=== PATIENT | male | born 1965 | race Caucasian/White ===

== ENCOUNTER → 2017-09-10 | Outpatient (CLI) | payer OTHER ==
[~2017-09-10] MED LIST: CHOL100027 PO; CLC6 PO; OMEG-112 PO; OMEP20TA31 PO; RXC5 PO; SULF800T23 PO; TADA20TA PO; TYLOTC500 PO
--- NOTE | 2017-09-10 15:06 | DIAGNOSTIC IMAGING REPORT ---
CHEST 2 VIEWS ROUTINE CLINICAL HISTORY: 51 years-old Male presenting with R06.09 Dyspnea on [id number]. TECHNIQUE: PA and lateral views of the chest were obtained. COMPARISON: 10/12/2012. FINDINGS: Cardiomediastinal silhouette normal. Lungs and pleural spaces clear. Osseous structures normal. Upper abdomen normal. IMPRESSION: 1. No acute cardiopulmonary disease. Electronically signed by: Richy Allen M.D. 09/10/2017 3:05 PM Dictated Date/Time: 09/10/2017 3:04 PM
== END | disposition home or self-care (01) ==
LOC: C.RAD1850 14:58
PROVIDERS: ATTEND Internal Medicine
DX: R06.09 Other forms of dyspnea (principal)

== ENCOUNTER → 2017-09-23 | Outpatient (CLI) | payer OTHER ==
--- NOTE | 2017-09-23 14:24 | DIAGNOSTIC IMAGING REPORT ---
R FOOT MIN 3 VIEWS ROUTINE HISTORY: 51 years-old Male M79.673 Heel painHeel pain acute right heel pain without reported trauma COMPARISON: None available TECHNIQUE: 3 views of the right foot FINDINGS: Mild degenerative changes of the first MTP joint with moderate associated soft tissue swelling. No acute fracture or subluxation is identified. Marginal spurring is noted about the dorsal talonavicular joint. Moderate sized plantar and Achilles enthesophytes. Peripheral vascular disease. IMPRESSION: 1. Moderate sized plantar and Achilles enthesophytes without evidence of calcaneal fracture. 2. Moderate soft tissue swelling about the first MTP joint with mild degenerative changes. 3. Peripheral vascular disease. The above report was generated using voice recognition software. It may contain grammatical, syntax or spelling errors. Electronically signed by: Leo Hooker M.D. 09/23/2017 2:23 PM Dictated Date/Time: 09/23/2017 2:21 PM
== END | disposition home or self-care (01) ==
LOC: C.RAD1850 13:54
PROVIDERS: ATTEND Internal Medicine Rheumatology
DX: M79.673 Pain in unspecified foot (principal); M77.31 Calcaneal spur, right foot; M76.61 Achilles tendinitis, right leg; M79.9 Soft tissue disorder, unspecified; I73.9 Peripheral vascular disease, unspecified

== ENCOUNTER → 2017-12-02 | Day surgery (SDC) | payer OTHER ==
[2017-11-26 14:48] VITALS: Ht 181.6 cm; Wt 129.6 kg
[~2017-12-02] VITALS: Ht 181.6 cm; Wt 129.6 kg
[~2017-12-02] MED LIST changes: +CALC-51 PO; -CHOL100027 PO; +CHOL20005 PO; -CLC6 PO; +CLIN1GEL TOP; +CYAN100020 PO; +FEBU40TA PO; +LIDOCAINE HCL 2% 2 ML VIAL (20MG/ML) ONE; +MELA1TAB5 PO; +METH1TAB81 PO; +MISCCAP80 PO; +MULT-506 PO; +PROPOFOL IV EMULSION 10 MG/ML 20 ML VIAL ONE; -RXC5 PO; +SODIUM CHLORIDE 0.9% 500ML 500 ML IV ONE; -SULF800T23 PO; -TADA20TA PO; -TYLOTC500 PO; +[UNRECOGNIZED DRUG - OTHER] PO
--- NOTE | 2017-12-02 11:55 | Endo History and Physical ---
History & Physical Date of Service: December 02, 2017. Chief Complaint: Hx polyps Referring Physician: Dr Prado History of Present Illness 51 yo CM who presents for colonoscopy secondary to history of colon polyps. Past Medical History Diabetes, Asthma, Gastrointestinal Disorder, Sleep Apnea, Other Past Surgical History Hx Cardiac Surgery: No Hx Internal Defibrillator: No Hx Pacemaker: No Hx Abdominal Surgery: No Hx of Implantable Prosthesis: No Hx Post-Op Nausea and Vomiting: No Hx Cancer Surgery: No Hx Thoracic Surgery: No Hx Orthopedic: No Hx Urinary Tract Surgery: No Family History Polyp Social History Smoking Status: Never Smoker Hx Substance Use: No Hx Alcohol Use: Yes (1-2 BEERS/CIDER A DAY) Allergies Coded Allergies: Penicillins (Verified Allergy, Mild, GI SYMPTOMS, 11/26/17) Current Medications Reported Home Medications Medications Dose Route/Sig Max Daily Dose Days Date Category Probiotic (Probiotic Product) 1 Cap Cap 1 Cap PO DAILY 11/26/17 Reported [Purge] 1 Tab PO DAILY PRN 11/26/17 Reported Cleocin-T (Clindamycin Phosphate (Topical) 1 % Gel 1 Appln TOP DIRECTED 30 11/26/17 Reported Uloric (Febuxostat) 40 Mg Tab 1 Tab PO DAILY 90 11/26/17 Reported Vitamin B12 (Cyanocobalamin) 1,000 Mcg Tab 1 Tab PO DAILY 11/26/17 Reported Kp Melatonin (Melatonin) 3 Mg Tab 1 Tab PO HS 30 11/26/17 Reported Multivitamin (Multivitamins) Tab 2 Tab PO DAILY 11/26/17 Reported Medrol (Methylprednisolone) 4 Mg Tab 4 Mg PO DAILY 11/26/17 Reported Calcium (Calcium Carbonate-Vitamin D) 1 Tab Tab 1 Tab PO DAILY 11/26/17 Reported Vitamin D3 (Cholecalciferol) 2,000 Unit Tab 3 Tab PO DAILY 11/26/17 Reported [place]-3 (Urjos-2-Hvpy Ethyl Esters) 1 Cap Cap 1 Cap PO DAILY 09/06/15 Reported Eq Omeprazole (Omeprazole) 20 Mg Tab 20 Mg PO DAILY 09/06/15 Reported Vital Signs Weight (Kilograms): 129.55 Height (Feet): 5 Height (Inches): 11.5 Date Time Temp Pulse Resp B/P (MAP) Pulse Ox O2 Delivery O2 Flow Rate FiO2 12/02/17 11:49 36.8 74 20 145/92 (109) 97 Room Air Physical Exam General Appearance: WD/WN, no apparent distress Respiratory/Chest: Auscultation: breath sounds normal Cardiovascular: Heart Auscultation: RRR Abdomen: Bowel Sounds: normal Inspection & Palpation: soft, non-distended, no tenderness, guarding & rebound Assessment and Plan Assessment: 51 yo CM who presents for colonoscopy secondary to history of colon polyps. Plan: Proceed with colonoscopy
--- NOTE | 2017-12-02 12:36 | Discharge Instructions ---
Endoscopy Patient Instructions Date / Procedure(s) Performed December 02, 2017. Colonoscopy Allergy Information Coded Allergies: Penicillins (Verified Allergy, Mild, GI SYMPTOMS, 11/26/17) Discharge Date / Findings December 02, 2017. Colon polyps Diverticulosis Internal hemorrhoids Medication Instructions OK to resume all medications today as prescribed Reported Home Medications Medications Dose Route/Sig Max Daily Dose Days Date Category Probiotic (Probiotic Product) 1 Cap Cap 1 Cap PO DAILY 11/26/17 Reported [Purge] 1 Tab PO DAILY PRN 11/26/17 Reported Cleocin-T (Clindamycin Phosphate (Topical) 1 % Gel 1 Appln TOP DIRECTED 30 11/26/17 Reported Uloric (Febuxostat) 40 Mg Tab 1 Tab PO DAILY 90 11/26/17 Reported Vitamin B12 (Cyanocobalamin) 1,000 Mcg Tab 1 Tab PO DAILY 11/26/17 Reported Kp Melatonin (Melatonin) 3 Mg Tab 1 Tab PO HS 30 11/26/17 Reported Multivitamin (Multivitamins) Tab 2 Tab PO DAILY 11/26/17 Reported Medrol (Methylprednisolone) 4 Mg Tab 4 Mg PO DAILY 11/26/17 Reported Calcium (Calcium Carbonate-Vitamin D) 1 Tab Tab 1 Tab PO DAILY 11/26/17 Reported Vitamin D3 (Cholecalciferol) 2,000 Unit Tab 3 Tab PO DAILY 11/26/17 Reported [place]-3 (Yxtbp-9-Msgf Ethyl Esters) 1 Cap Cap 1 Cap PO DAILY 09/06/15 Reported Eq Omeprazole (Omeprazole) 20 Mg Tab 20 Mg PO DAILY 09/06/15 Reported Provider Instructions Activity Restrictions - No exercising or heavy lifting for 24 hours. - Do not drink alcohol the day of the procedure. - Do not drive a car or operate machinery until the day after the procedure. - Do not make any important decisions or sign important papers in 24 hours after the procedure. Following Day: - Return to full activity which may include returning to work/school. Diet Start your diet with liquids and light foods (jello, soup, juice, toast). Then eat your usual diet if not nauseated. Treatment For Common After Affects For mild abdominal pain, bloating, or excessive gas: - Rest - Eat lightly - Lie on right side Follow-Up Information Follow-up with Dr Prado as scheduled Anesthesia Information What You Should Know You have had a procedure that required some medicine to reduce anxiety and discomfort. This treatment is called moderate sedation. After receiving the treatment, you may be sleepy, but you will be able to breathe on your own. The effects of the treatment may last for several hours. Follow these instructions along with Activity/Diet recommendations noted above: * Do NOT do anything where dizziness or clumsiness would be dangerous. * Rest quietly at home today, then you can be up and about tomorrow. * Have a responsible person stay with you the rest of today. * You may have had an I.V. today. If so, you may take the dressing off later today. Recommendations Call your doctor if: * Trouble breathing * Continuous vomiting for more than 24 hours * Temperature above 101 degrees * Severe abdominal pain or bloating * Pain not relieved by pain medicine ordered * There is increased drainage or redness from any incision * A large amount of rectal bleeding greater than 2-3 tablespoons. (If you had a polyp/s removed or have hemorrhoids, a small amount of blood - from the rectum is to be expected.) * You have any unanswered questions or concerns. IN THE EVENT OF A SERIOUS EMERGENCY, GO TO THE NEAREST EMERGENCY ROOM Your discharge instructions were prepared by provider Migel Yeung. Patient Instructions Signature Page Dominic Blevins Patient (or Guardian) Signature/Date: I have read and understand the instructions given to me by my caregivers. Caregiver/RN/Doctor Signature/Date: The above-named patient and/or guardian has received patient instructions on this date. + Original Patient Signature Page (only) stays with chart. Please make copy for patient.
--- NOTE | 2017-12-02 12:51 | GI REPORT ---
Patient Name: Dominic Blevins Procedure Date: 12/02/2017 11:25 AM Date of : 1965 Admit Type: Outpatient Age: 51 Gender: Male Attending MD: Migel Yeung DO Procedure: Colonoscopy Providers: Migel Yeung DO Referring MD: Ksenia Prado Indications: High risk colon cancer surveillance: Personal history of colonic polyps Medicines: Monitored Anesthesia Care Complications: No immediate complications. Estimated Blood Loss: Estimated blood loss: none. Procedure: Pre-Anesthesia Assessment: - Prior to the procedure, a History and Physical was performed, and patient medications and allergies were reviewed. The patient's tolerance of previous anesthesia was also reviewed. The risks and benefits of the procedure and the sedation options and risks were discussed with the patient. All questions were answered, and informed consent was obtained. Prior Anticoagulants: The patient has taken no previous anticoagulant or antiplatelet agents. ASA Grade Assessment: III - A patient with severe systemic disease. After reviewing the risks and benefits, the patient was deemed in satisfactory condition to undergo the procedure. After I obtained informed consent, the scope was passed under direct vision. Throughout the procedure, the patient's blood pressure, pulse, and oxygen saturations were monitored continuously. The Scope was introduced through the anus and advanced to the terminal ileum. The colonoscopy was performed without difficulty. The patient tolerated the procedure well. The quality of the bowel preparation was good. The terminal ileum, ileocecal valve, appendiceal orifice, and rectum were photographed. Findings: The perianal and digital rectal examinations were normal. A 13 mm polyp was found in the ascending colon. The polyp was flat. The polyp was removed with a piecemeal technique using a hot snare. Resection and retrieval were complete. To prevent bleeding after the polypectomy, one hemostatic clip was successfully placed (MR conditional). There was no bleeding at the end of the procedure. A 4 mm polyp was found in the rectum. The polyp was sessile. The polyp was removed with a hot snare. Resection and retrieval were complete. Multiple small-mouthed diverticula were found in the sigmoid colon. Non-bleeding internal hemorrhoids were found during retroflexion. The hemorrhoids were small. Impression: - One 13 mm polyp in the ascending colon, removed piecemeal using a hot snare. Resected and retrieved. Clip (MR conditional) was placed. - One 4 mm polyp in the rectum, removed with a hot snare. Resected and retrieved. - Diverticulosis in the sigmoid colon. - Non-bleeding internal hemorrhoids. Recommendation: - Resume previous diet. - Continue present medications. - Repeat colonoscopy for surveillance based on pathology results. - Return to primary care physician as previously scheduled. Migel Yeung, DO 12/02/2017 12:50:36 PM This report has been signed electronically. Note Initiated On: 12/02/2017 11:25 AM Number of Addenda: 0 I attest to the content of the Intraoperative Record and orders documented therein, exceptions below {[id number]}
[2017-12-02 13:07] VITALS: BP 133/87; PULSE 69; O2SAT 94
--- NOTE | 2017-12-02 13:17 | Anesthesiology Progress Note ---
Anesthesia Post Op Note Date & Time December 02, 2017 at 13:16 Vital Signs Pain Intensity: 0 Vital Signs Past 12 Hours Date Time Temp Pulse Resp B/P (MAP) Pulse Ox O2 Delivery O2 Flow Rate FiO2 12/02/17 12:51 67 20 152/90 (110) 93 Room Air 12/02/17 12:35 74 20 143/84 (103) 96 Room Air 12/02/17 11:49 36.8 74 20 145/92 (109) 97 Room Air Notes Mental Status: alert / awake / arousable, participated in evaluation Pt Amnestic to Procedure: Yes Nausea / Vomiting: adequately controlled Pain: adequately controlled Airway Patency, RR, SpO2: stable & adequate BP & HR: stable & adequate Hydration State: stable & adequate Anesthetic Complications: no major complications apparent
== END | disposition home or self-care (01) ==
LOC: C.GI 10:34
PROVIDERS: ATTEND Internal Medicine
DX: Z12.11 Encounter for screening for malignant neoplasm of colon (principal); D12.2 Benign neoplasm of ascending colon; K62.1 Rectal polyp; K57.30 Diverticulosis of large intestine without perforation or abscess without bleeding; K64.8 Other hemorrhoids; Z86.010 Personal history of colon polyps; E11.9 Type 2 diabetes mellitus without complications; J45.909 Unspecified asthma, uncomplicated; G47.33 Obstructive sleep apnea (adult) (pediatric); Z88.0 Allergy status to penicillin; F41.9 Anxiety disorder, unspecified; F32.9 Major depressive disorder, single episode, unspecified

== ENCOUNTER 2022-12-30 14:23 | Inpatient (IN) ==
[2022-12-30 14:41] LABS: Basophils # (auto) 0.06 K/uL (0-0.2); Basophils % (auto) 0.6 %; Eosinophils # (auto) 0.16 K/uL (0-0.50); Eosinophils % (auto) 1.6 %; Hemoglobin 14.5 g/dl (14.0-18.0); Immature Granulocytes # (auto) 0.07 K/uL (0.01-0.20); Immature Granulocytes % (auto) 0.7 %; Lymphocytes # (auto) 2.02 K/uL (1.2-3.4); Lymphocytes % (auto) 20.6 %; Mean Corpuscular Hemoglobin 28.8 pg (25.0-34.0); Mean Corpuscular Hgb Conc 34.5 g/dL (32.0-36.0); Mean Corpuscular Volume 83.5 fL (80.0-100.0); Mean Platelet Volume 10.8 fL (9.4-12.4); Monocytes # (auto) 0.76 K/uL (0.11-0.59); Monocytes % (auto) 7.8 %; Neutrophils # (auto) 6.73 K/uL (1.40-6.50); Neutrophils % (auto) 68.7 %; Platelet Count 252 K/uL (130-400); RDW Coefficient of Variation 12.7 % (11.5-14.5); RDW Standard Deviation 38.5 fL (36.4-46.3); Red Blood Count 5.03 M/uL (4.70-6.10)
--- NOTE | 2022-12-30 14:44 | Emergency Department Note ---
History of Present Illness General Chief complaint: Heart Alert Stated complaint: HEART ALERT Time Seen by Provider: 12/30/22 14:26 Source: patient, EMS ([facility] medical command was given prehospital), RN notes reviewed and old records reviewed (I have reviewed the cath report that was done on 12-19-22) Mode of arrival: EMS Limitations: no limitations History of Present Illness Maximum Pain Intensity: 3 This patient is a 57-year-old male who comes in after having chest pain which started on 130 has a history of multivessel coronary disease and in fact was cathed recently on 12/19/2022. It showed complex multivessel disease. He was awaiting his CABG and was doing well until about 130 today developed chest pain he took 2 nitroglycerin at home EMS called me. I did order additional morphine 2 mg IV and told him they could also give him additional nitro sublingual as he was tolerated this well with his pressure it was 140 in the field. They had given him aspirin 325 mg as well. Upon arrival the patient has 3 out of 10 discomfort. He does feel mildly short of breath only. No trauma or injury. No numbness or weakness. Home Medications Medication Instructions Recorded Confirmed Type calcium carbonate 600 mg calcium 600 mg PO QAM 11/05/18 12/19/22 History (1,500 mg) tablet (Calcium) cholecalciferol (vitamin D3) 50 3 cap PO HS 11/05/18 12/19/22 History mcg (2,000 unit) capsule (Vitamin D3) clindamycin phosphate 1 % topical 1 applic topical BID PRN Rash 11/05/18 12/19/22 History solution cyanocobalamin (vitamin B-12) 5,000 mcg sublingual HS 11/05/18 12/19/22 History 5,000 mcg sublingual tablet (Vitamin B-12) febuxostat 80 mg tablet (Uloric) 80 mg PO QAM 11/05/18 12/19/22 History multivitamin 1 tab PO QAM 11/05/18 12/19/22 History antiarthritic combination no.2 900 2,700 mg PO QAM 03/10/19 12/19/22 History mg tablet (glucosamine-chondroitin) omega-3 acid ethyl esters 1 gram 1 cap PO HS #90 caps 03/12/19 12/19/22 Rx capsule alclometasone 0.05 % topical cream 1 applic topical DAILY PRN Rash 06/12/20 12/19/22 Rx #45 grams ferrous sulfate 325 mg (65 mg 650 mg PO DAILY 01/22/21 12/19/22 History iron) tablet (Mona-Time) Auto Titrating CPAP #1 ea 10/25/21 12/19/22 Rx CPAP Supplies #1 ea 10/25/21 12/19/22 Rx ascorbic acid (vitamin C) 500 mg 500 mg PO 1XD 06/12/22 12/19/22 History capsule quercetin 500 mg capsule 500 mg PO 1XD 06/12/22 12/19/22 History zinc gluconate 50 mg tablet 50 mg PO DAILY 06/12/22 12/17/22 History furosemide 40 mg tablet (Lasix) 40 mg PO QAM #30 tabs 11/08/22 12/19/22 Rx albuterol sulfate 90 mcg/actuation 2 inh inhalation QID PRN shortness 11/11/22 12/19/22 Rx aerosol inhaler of breath or wheezing #8.5 grams colchicine 0.6 mg tablet (Colcrys) 0.6 mg PO BID PRN Abdominal Pain 11/13/22 12/19/22 History omeprazole 20 mg tablet,delayed 20 mg PO HS #90 tabs 11/20/22 12/19/22 Rx release tirzepatide 2.5 mg/0.5 mL 2.5 mg (0.5 mL) subcut .ONCE 11/20/22 12/17/22 Rx subcutaneous pen injector WEEKLY #2 mL (Jaime) aspirin 81 mg tablet,delayed 81 mg PO DAILY #90 tabs 12/11/22 12/19/22 Rx release atorvastatin 40 mg tablet 40 mg PO HS #30 tabs 12/19/22 Rx metoprolol succinate 25 mg 25 mg PO DAILY #30 tabs 12/19/22 Rx tablet,extended release 24 hr (Toprol XL) nitroglycerin 0.4 mg sublingual 0.4 mg sublingual Q5M PRN chest 12/19/22 Rx tablet pain #30 tabs isosorbide mononitrate 30 mg 30 mg PO DAILY #30 tabs 12/21/22 Rx tablet,extended release 24 hr Allergies Allergy/AdvReac Type Severity Reaction Status Date / Time gluten Allergy Severe Celiac Verified 12/19/22 07:37 Disease wheat Allergy Severe celiac Verified 12/19/22 07:37 disease Penicillins Allergy Mild nausea/vomi Verified 12/19/22 07:37 ting Past Med/Surg History Medical History Anemia iron infusion 11/2019 Asthma childhood asthma--no inhaler BPH (benign prostatic hyperplasia) Cardiac murmur Moderate aortic sclerosis with no stenosis on 2018 stress echo Celiac disease diagnosed 2008--following a gluten free diet since 2018 Chest tightness Diastolic CHF Dyspnea on exertion GERD (gastroesophageal reflux disease) Gout Incomplete bladder emptying Iron deficiency anemia Microcytic anemia Morbid obesity due to excess calories Morbid obesity due to excess calories MAREN (obstructive sleep apnea) Osteoarthritis Prediabetes Scoliosis Shortness of breath Sleep apnea cpap Surgical History History of biopsy benign in mouth History of colonoscopy with polypectomy History of esophagogastroduodenoscopy (EGD) History of wisdom tooth extraction Family History Father Family history of diabetes mellitus Mother Thyroid disease Grandfather No problems noted. Grandfather Cardiac disorder Grandfather (Maternal) Myocardial infarction Grandfather (Paternal) Prostate cancer Other No family history of adverse response to anesthesia Denies family history of Colon cancer Ovarian cancer Breast cancer Social History Smoking Status: Never smoker Second Hand Exposure: No; Do You Dip or Chew Tobacco: No; Hx Alcohol Use: Yes Alcohol type: beer Hx Substance Use: No Preferred Language: Nauruan Communication Ability: Effective Visual Impairment: No Limitations Hearing Ability: Normal Vice President Biostatistics Required: No Beliefs That Will Affect Care: None marital status: Current Living Situation: Spouse current occupational status: employed Feels Safe at Home: Yes Childhood Exposure to Second-Hand Smoke: No Dental Care, Regularly: Yes Physical Activity Frequency: Does not Exercise Seatbelt Use: always Sunscreen Use: No Assistive Devices: None Review of Systems A total of 10 systems reviewed and were otherwise negative Physical Exam Vital Signs Vital Signs - 24 hr 12/30/22 14:30 12/30/22 14:31 12/30/22 14:36 Temperature 36.3 C L Temperature Source Oral Pulse Rate 93 H 93 H Respiratory Rate 20 Blood Pressure 170/100 H Blood Pressure Mean 123 Pulse Oximetry 96 96 Oxygen Delivery Method Room Air Sepsis Recent Fever Within 48 Hours No Sepsis New/Unexplained Change in Mental Status N/A Sepsis Action Taken by Nursing No Action Required General: Well developed well nourished obese middle-age male who appears mildly uncomfortable but in no acute respiratory distress, breathing comfortably on room air. Normal speech HEENT: Normal cephalic atraumatic. Pupils are equal round and reactive to light. Extraocular movements are intact. Oropharynx is pink with moist mucous membranes. No swelling of the mouth lips or tongue. Neck: Supple with a midline trachea. No meningeal signs or stiffness, no JVD or bruits. No Stridor. Chest: Clear to auscultation bilaterally. No wheezes or rhonchi. No increased work of breathing. Heart: Regular rate and rhythm without murmurs or gallops. Abdomen: Soft nontender, nondistended without rebound guarding or rigidity. Extremities: No cyanosis clubbing or edema. No calf tenderness or assymetry Spine/Back. Non tender to palpation. No CVA tenderness Skin: Good turgor without rashes. Neurologic exam: Nonfocal, moving all 4 extremities symmetrically Medical Decision Making Differential Diagnosis Acute coronary syndrome, arrhythmia, pericarditis, myocarditis, infection, inflammation, vascular aortic pathology, CHF Medical Records Attestation: I reviewed the patient's medical records. Home Medications Current Medication List: was personally reviewed by me Laboratory Data Attestation: I reviewed the patient's lab results. 12/30/22 14:29 12/30/22 14:29 Lab Results 12/30/22 12/30/22 12/30/22 Range/Units 14:29 14:29 14:29 WBC 9.80 (4.8-10.8) K/ul RBC 5.03 (4.70-6.10) M/uL Hgb 14.5 (14.0-18.0) g/dl POC Hgb (14.0-18.0) g/dl Hct 42.0 (42.0-52.0) % POC Hct (42-52) % MCV 83.5 (80.0-100.0) fL MCH 28.8 (25.0-34.0) pg MCHC 34.5 (32.0-36.0) g/dL RDW Std Deviation 38.5 (36.4-46.3) fL RDW Coeff of Katya 12.7 (11.5-14.5) % Plt Count 252 (130-400) K/uL MPV 10.8 (9.4-12.4) fL Immature Gran % (Auto) 0.7 % Neut % (Auto) 68.7 % Lymph % (Auto) 20.6 % [place] % (Auto) 7.8 % Eos % (Auto) 1.6 % Baso % (Auto) 0.6 % Neut # (Auto) 6.73 H (1.40-6.50) K/uL Lymph # (Auto) 2.02 (1.2-3.4) K/uL [place] # (Auto) 0.76 H (0.11-0.59) K/uL Eos # (Auto) 0.16 (0-0.50) K/uL Baso # (Auto) 0.06 (0-0.2) K/uL Immature Gran # (Auto) 0.07 (0.01-0.20) K/uL PT 11.6 (9.0-12.0) Seconds INR 1.1 (0.9-1.1) APTT 29.5 (21.0-31.0) Seconds PTT Ratio 1.0 POC Sodium (135-144) mmol/L Sodium 134 L (136-145) mmol/L POC Potassium (3.3-5.0) mmol/L Potassium 3.4 L (3.5-5.1) mmol/L POC Chloride (101-112) mmol/L Chloride 102 (98-107) mmol/L Carbon Dioxide 23 (21-32) mmol/L POC Total CO2 (24-31) mmol/L Anion Gap 9 (3-11) POC Anion Gap (16-25) mmol/L POC BUN (7-18) mg/dl BUN 18 (6-23) mg/dl Creatinine 1.03 (0.6-1.4) mg/dl POC Creatinine (0.6-1.3) mg/dl Est Cr Clr Drug Dosing 109.9 ml/min Est GFR ( Amer) 91.7 ml/min Est GFR (Non-Af Amer) 79.1 ml/min BUN/Creatinine Ratio 17.5 (10-20) Glucose 119 H (70-99(Fasting)) mg/dl POC Glucose (other) (70-99) mg/dl Calcium 9.5 (8.6-10.3) mg/dl POC Ioniz Calcium Nav (1.12-1.32) mmol/l Total Bilirubin 0.6 (0.2-1.0) mg/dl AST 29 (13-39) U/L ALT 48 (7-52) U/L Alkaline Phosphatase 73 (34-104) U/L Troponin I High Sens 5.4 (0-20) pg/ml Total Protein 7.5 (6.0-8.3) gm/dl Albumin 4.8 (3.4-5.0) gm/dl Globulin 2.7 (2.5-4.0) gm/dl Albumin/Globulin Ratio 1.8 (0.9-2) Lipase 32 (11-82) U/L SARS-CoV-2, RNA, NAAT (NEGATIVE) 12/30/22 12/30/22 Range/Units 14:32 14:33 WBC (4.8-10.8) K/ul RBC (4.70-6.10) M/uL Hgb (14.0-18.0) g/dl POC Hgb 13.9 L (14.0-18.0) g/dl Hct (42.0-52.0) % POC Hct 41 L (42-52) % MCV (80.0-100.0) fL MCH (25.0-34.0) pg MCHC (32.0-36.0) g/dL RDW Std Deviation (36.4-46.3) fL RDW Coeff of Katya (11.5-14.5) % Plt Count (130-400) K/uL MPV (9.4-12.4) fL Immature Gran % (Auto) % Neut % (Auto) % Lymph % (Auto) % [place] % (Auto) % Eos % (Auto) % Baso % (Auto) % Neut # (Auto) (1.40-6.50) K/uL Lymph # (Auto) (1.2-3.4) K/uL [place] # (Auto) (0.11-0.59) K/uL Eos # (Auto) (0-0.50) K/uL Baso # (Auto) (0-0.2) K/uL Immature Gran # (Auto) (0.01-0.20) K/uL PT (9.0-12.0) Seconds INR (0.9-1.1) APTT (21.0-31.0) Seconds PTT Ratio POC Sodium 137 (135-144) mmol/L Sodium (136-145) mmol/L POC Potassium 3.4 (3.3-5.0) mmol/L Potassium (3.5-5.1) mmol/L POC Chloride 102 (101-112) mmol/L Chloride (98-107) mmol/L Carbon Dioxide (21-32) mmol/L POC Total CO2 20 L (24-31) mmol/L Anion Gap (3-11) POC Anion Gap 20.0 (16-25) mmol/L POC BUN 17 (7-18) mg/dl BUN (6-23) mg/dl Creatinine (0.6-1.4) mg/dl POC Creatinine 0.9 (0.6-1.3) mg/dl Est Cr Clr Drug Dosing ml/min Est GFR ( Amer) ml/min Est GFR (Non-Af Amer) ml/min BUN/Creatinine Ratio (10-20) Glucose (70-99(Fasting)) mg/dl POC Glucose (other) 120 H (70-99) mg/dl Calcium (8.6-10.3) mg/dl POC Ioniz Calcium Nav 1.08 L (1.12-1.32) mmol/l Total Bilirubin (0.2-1.0) mg/dl AST (13-39) U/L ALT (7-52) U/L Alkaline Phosphatase (34-104) U/L Troponin I High Sens (0-20) pg/ml Total Protein (6.0-8.3) gm/dl Albumin (3.4-5.0) gm/dl Globulin (2.5-4.0) gm/dl Albumin/Globulin Ratio (0.9-2) Lipase (11-82) U/L SARS-CoV-2, RNA, NAAT NEGATIVE (NEGATIVE) ECG Data Attestation: I personally reviewed and interpreted this ECG as follows: Indication: + chest pain Rate (beats per minute): 93 Rhythm: + normal sinus ECG Intervals/blocks: + Normal QRS and + Normal QT ECG [place]: + Normal ECG ST segments: + ST depression (Lateral) and + ST elevation (Inferior) ECG Findings: no PACs or no PVCs Comparison ECG Date: from (EMS EKG) Change: the following changes noted (The ST segment and ischemic changes appear to be worsening/evolving) MDM Narrative This patient comes in as described above. They called in from [facility] medical command. Based on his EKGs in the field as well as his history his presentation is very consistent with an acute inferior PR. I called the heart alert immediately after talking to EMS. He did receive aspirin 324 mg in the field as well as nitroglycerin x2 and morphine 2 mg IV. His pain is about 3 out of 10 upon arrival which she describes more of a discomfort. He did have a cath about a week ago and is known multivessel coronary disease. The cath team arrived promptly. In the meantime, we obtained labs and a second IV. His creatinine was 0.9 on the i-STAT , he no significant electrolyte or metabolic abnormalities with exception of a mildly low potassium at 3.4. He was sent emergently to the [facility]ies [facility]. I discussed case with Dr. Gramajo. I also discussed case with Dr. Henderson, who is the [facility] hospitalist. It may be that they stent him and send him to [facility] or it may be he gets admitted here depending upon the clinical course in the [facility]. COVID testing was negative. Continuous cardiac monitoring: Orders placed in EMR for continuous cardiac monitoring: Upon my evaluation patient noted to be in normal sinus rhythm rate of 90. He has obvious ST segment elevations consistent with STEMI on the EKG Impression & Plan Acute ST elevation myocardial infarction (STEMI), Chest pain, Lab test negative for COVID-19 virus, Hypokalemia Discharge Plan Visit Data Chief Complaint: Heart Alert Stated Complaint: HEART ALERT ED Provider: Anand Ybarra Discharge Problem: Acute ST elevation myocardial infarction (STEMI), Chest pain, Lab test negative for COVID-19 virus, Hypokalemia Patient Disposition: Being Evaluated by Surgeon Discharge Instructions Interventions: ED Discharge Assessment Last Done: 12/30/22 14:37 Forms Stand Alone Forms: My [facility] Prescriptions Prescriptions: No Action alclometasone 0.05 % cream 1 applic TOPICAL DAILY PRN (Reason: Rash) Qty: 45 2RF furosemide [Lasix] 40 mg tablet 40 mg PO QAM Qty: 30 3RF nitroglycerin 0.4 mg tablet, sublingual 0.4 mg sublingual Q5M PRN (Reason: chest pain) Qty: 30 1RF Rx Instructions: do not exceed 3 doses per episode isosorbide mononitrate 30 mg tablet extended release 24 hr 30 mg PO DAILY Qty: 30 2RF glucosamine-chondroitin 900 mg tablet 2,700 mg PO QAM omega-3 acid ethyl esters 1 gram capsule 1 cap PO HS Qty: 90 1RF Mounjaro 2.5 mg/0.5 mL pen injector 2.5 mg subcut .ONCE WEEKLY Qty: 2 1RF omeprazole 20 mg tablet,delayed release (DR/EC) 20 mg PO HS Qty: 90 3RF aspirin 81 mg tablet,delayed release (DR/EC) 81 mg PO DAILY Qty: 90 3RF (DME) CPAP Supplies Misc See Rx Instructions .ROUTE .MEDSUPPLY Qty: 1 0RF Rx Instructions: CPAP supplies (DME) Auto Titrating CPAP Misc See Rx Instructions .ROUTE .MEDSUPPLY Qty: 1 0RF Rx Instructions: Min 5 cm H2O, max 20 cm H2O, C-Flex 2 ascorbic acid (vitamin C) 500 mg capsule 500 mg PO 1XD zinc gluconate 50 mg tablet 50 mg PO DAILY quercetin 500 mg capsule 500 mg PO 1XD ferrous sulfate [Mona-Time] 325 mg (65 mg iron) tablet 650 mg PO DAILY albuterol sulfate 90 mcg/actuation HFA aerosol inhaler 2 inh inhalation QID PRN (Reason: shortness of breath or wheezing) Qty: 8.5 3RF multivitamin Tablet 1 tab PO QAM calcium carbonate [Calcium 600] 600 mg calcium (1,500 mg) Tablet 600 mg PO QAM clindamycin phosphate 1 % Solution 1 applic TOPICAL BID PRN (Reason: Rash) cholecalciferol (vitamin D3) [Vitamin D3] 2,000 unit Capsule 3 cap PO HS febuxostat [Uloric] 80 mg Tablet 80 mg PO QAM cyanocobalamin (vitamin B-12) [Vitamin B-12] 5,000 mcg Tablet, Sublingual 5,000 mcg SUBLINGUAL HS colchicine [Colcrys] 0.6 mg tablet 0.6 mg PO BID PRN (Reason: Abdominal Pain) atorvastatin 40 mg tablet 40 mg PO HS Qty: 30 6RF metoprolol succinate [Toprol XL] 25 mg tablet extended release 24 hr 25 mg PO DAILY Qty: 30 6RF Referrals Referrals: Gallo Mcgraw MD [Primary Care Provider] - Acute ST elevation myocardial infarction (STEMI) Qualifiers: Involved coronary artery: unspecified coronary artery Qualified Code(s): I21.3 - ST elevation (STEMI) myocardial infarction of unspecified site Chest pain Qualifiers: Chest pain type: unspecified Qualified Code(s): R07.9 - Chest pain, unspecified
[2022-12-30 14:46] LABS: iSTAT Creatinine 0.9 mg/dl (0.6-1.3); iSTAT Hemoglobin 13.9 g/dl (14.0-18.0); iSTAT Ionized Calcium 1.08 mmol/l (1.12-1.32); iSTAT Potassium 3.4 mmol/L (3.3-5.0)
[2022-12-30 14:52] LABS: INR 1.1 (0.9-1.1); Partial Thromboplastin Time 29.5 Seconds (21.0-31.0); Prothrombin Time 11.6 Seconds (9.0-12.0)
[2022-12-30] MEDS ORDERED: niCARdipine HCL INJ 2.5 MG/ML 10 ML AMP ONE (14:55)
[2022-12-30] MEDS ORDERED: HEPARIN (PORCINE) 1000 UNIT/ML 10 ML (CATH LAB USE ONLY) ONE (14:55)
[2022-12-30] MEDS ORDERED: MIDAZOLAM HCL 1 MG/ML 2ML VIAL ONE ×2 (14:56→15:34)
[2022-12-30] MEDS ORDERED: fentaNYL citrate PF 100 MCG/2 ML VIAL ONE (14:56)
[2022-12-30] MEDS ORDERED: NITROGLYCERIN/D5W 100MCG/ML 20ML SYR ONE (14:57)
[2022-12-30] MEDS ORDERED: ONDANSETRON INJ 2 MG/ML 2 ML VIAL ONE (14:59)
[2022-12-30] MEDS ORDERED: EPTIFIBATIDE 0.75 MG/ML 75MG VIAL (CATH LAB USE ONLY) IV ONE (14:59)
[2022-12-30] MEDS ORDERED: EPTIFIBATIDE 2 MG/ML 10 ML VIAL (CATH LAB USE ONLY) IV ONE (14:59)
[2022-12-30 15:02] LABS: Albumin Globulin Ratio 1.8 (0.9-2); Albumin Level 4.8 gm/dl (3.4-5.0); BUN Creatinine Ratio 17.5 (10-20); Bilirubin,Total 0.6 mg/dl (0.2-1.0); Calcium 9.5 mg/dl (8.6-10.3); Creatinine Clr Calc Pharmacy 109.9 ml/min; Est GFR (African American) 91.7 ml/min; Est GFR (Non-African American) 79.1 ml/min; Globulin 2.7 gm/dl (2.5-4.0); Potassium 3.4 mmol/L (3.5-5.1); Total Protein 7.5 gm/dl (6.0-8.3)
[2022-12-30] MEDS ORDERED: AMIODARONE 360MG / 200ML D5W (CATH LAB USE ONLY) IV ONE (15:07)
[2022-12-30] MEDS ORDERED: AMIODARONE 150MG / 100ML D5W (CATH LAB USE ONLY) IV ONE (15:07)
[2022-12-30 15:09] LABS: Troponin I High Sensitivity 5.4 pg/ml (0-20)
[2022-12-30] MEDS ORDERED: ATROPINE SULFATE 0.1 MG/ML 10ML SYR IV ONE (15:10)
[2022-12-30] MEDS ORDERED: POTASSIUM CHLORIDE 10 MEQ / 100ML WTR IV ONE ×2 (15:13→15:17)
[2022-12-30] MEDS ORDERED: MAGNESIUM SULFATE 1GM / D5W BAG IV ONE (15:17)
[2022-12-30 15:35] LABS: iSTAT Creatinine 0.6 mg/dl (0.6-1.3); iSTAT Hemoglobin 12.9 g/dl (14.0-18.0); iSTAT Ionized Calcium 1.07 mmol/l (1.12-1.32); iSTAT Potassium 3.1 mmol/L (3.3-5.0)
[2022-12-30] MEDS ORDERED: HEPARIN 25000 UNIT/500 ML D5W IV ONE (15:51)
[2022-12-30] MEDS ORDERED: NITROGLYCERIN/D5W 100 MCG/ML BTL ONE (15:51)
--- NOTE | 2022-12-30 16:18 | Cardiac Catheterization ---
[facility] Data: Financial Investment Adviser Cardiac Status Clinical evaluation leading to the procedure CAD Presenation: STEMI Anginal Classification: CCS IV Diagnostic Physicians Name: Db Gramajo MD Closure Device Recommendations: CABG Cardiac Cath Procedure Full Procedure Date December 30, 2022 Pre-Procedure Diagnosis Pre-Procedure Diagnosis: Acute Coronary Syndrome AUC Score AUC Score: 7 Post-Procedure Diagnosis Post-Procedure Diagnosis: Severe CAD and Normal Intracardiac Pressures Procedure(s) Performed Procedure(s) Performed: Coronary Angiography and Left Heart Cath Supervisor Body Assembly Db Gramajo MD All Terrain Vehicle Technician(s) ted Estimated Blood Loss Estimated Blood Loss: 20 Medication(s) Medication(s): Fentanyl, Heparin, Integrilin, Lidocaine 1%, Nicardipine, Nitroglycerin and Versed Medication(s): ticagrelor Summary of Findings Indication: ACS, transient inferior ST elevation. Known severe multivessel disease. Patient underwent cardiac evaluation 11 days ago and was found to have complex multivessel disease for which CABG was recommended. Awaiting outpatient CABG evaluation. Recurrent symptoms on antianginals over the weekend and acute chest pain this afternoon. Access: 6 Fr right radial artery Catheters: [place], JR4 guide Findings: LM -normal caliber, no significant disease LAD -medium caliber. 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 LAD small with 95+% stenosis at takeoff from aneurysm. 70% mid diffuse disease. Distal LAD with PATRICIA I flow in tapers prior to apex. D1, D2 mild disease. Circumflex -medium caliber, mild mid segment disease, 50% proximal medium OM2 RCA -dominant, medium caliber, calcified 98% mid stenosis with acute thrombus. Large RPDA with 40% mid disease and continues to apex. Diffuse disease in right posterior AV branch up to 50%. PCI: Patient initially had inferior ST elevations on ECG on arrival to ED. Patient received ticagrelor in ED. On arrival to [facility] Ad[facility]er received IV Integrilin and heparin bolus. While obtaining diagnostic images ST segments on monitoring started to improve Patient continued to have mild residual chest pain and intermittent runs of AIVR. Electrolyte supplemented and loaded with amiodarone. Initial plan to perform angioplasty to the mid RCA to improve flow prior to transfer for cardiac surgery evaluation RCA cannulated with JR4 guide Distillery Laborer 50 wire navigated into distal RCA Despite use of telescope support catheter unable to pass 2.5 balloon 2.0 balloon delivered to proximal aspect of the RCA lesion but unable to pass across stenosis despite gentle angioplasty Attempt made to pass Corsair microcatheter across lesion also unsuccessful. By this time patient was chest pain-free, electrically and hemodynamically stable. Decision made to forego further attempts at PCI. 8 Fr sheath placed to right AQUACULTURIST and IABP placed to descending thoracic aorta IABP with augmented pressures to the 120s, MAPs to the 80s. Started on heparin and nitro infusions. 6 Fr sheath placed to right CFV for additional venous access. At completion of procedure patient feeling well, chest pain free had PATRICIA-3 flow in RCA and transferred to ICU. Arterial Closure: TR band Summary: 1. 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 Small LAD 95% stenosis after aneurysm and 70% mid diffuse disease. 50% proximal OM2 2. Attempted angioplasty of mid RCA with 2.0 balloon. RCA lesion unchanged but post procedure PATRICIA-3 flow in RCA 3. Successful placement of IABP Recommendations: Case discussed with cardiac surgery and cardiac ICU team at [facility]. Transfer this afternoon/evening by helicopter for CABG evaluation. Continue IABP, heparin and nitroglycerin infusions en route. Hemodynamics Rest Ao:: 133/70/123 Final Ao: 126/74/124 LV: -- Recommendations Recommendations: CABG Specimens Specimens: None Radiation Exposure (mGy) 3897 Contrast (mls) 100 Anesthesia Moderate 4947-9299 Procedural Complication(s) None Disposition ICU I attest to the content of the Intraoperative Record and any orders documented therein. Any exceptions are noted below. [facility] Procedure Codes Cardiac Catheterization Procedure 1: Cardiovascular Cath Procedures: 99006 Coronaries Therapeutic Services & Ancillary Procedure 1: Cardiovascular Tx and Anc Procedures: 53410 Ultrasonic Guidance Vascular Access Procedure 2: Cardiovascular Tx and Anc Procedures: 37223 IABP Insertion Moderate Sedation Procedure 1: Sedation/Anesthesia: 48087 Mod Sedation by the same physician;Init15 Min Child Age 5 & Up Procedure 2: Sedation/Anesthesia: 13071 Mod Sedation by the same physician; Ea [id number] Minutes Stenting Procedure 1: Cardiovascular Stent Procedures: 67193 Perc transluminal revascularization of acute sub/total occl, aMI PG Care Time/CCT Total # of Minutes Spent Total Time Spent with Patient: Total time spent is greater than 50% in coordination of care (as documented) at patient's floor/unit and/or counseling patient:
[2022-12-30] MEDS ORDERED: ICU Protocol for HYPERglycemia SCH (16:30)
--- NOTE | 2022-12-30 16:52 | Pulmonary Consultation ---
Date of Consultation December 30, 2022 Assessment & Plan (1) Acute ST elevation myocardial infarction (STEMI): Involved coronary artery: unspecified coronary artery Qualified Code(s): I21.3 - ST elevation (STEMI) myocardial infarction of unspecified site (2) CAD (coronary artery disease): Plan Patient was seen briefly at bedside upon arrival in the ICU. The patient underwent cardiac catheterization today in the setting of an acute ST elevation myocardial infarction which confirmed underlying diagnosis of multivessel disease. Balloon pump was placed and the patient remains chest pain-free at this time. Patient is rate controlled on amiodarone drip. He is currently on a heparin drip as well as nitroglycerin. Patient is excepted and helicopter is pending transfer to [facility] for definitive care. History of Present Illness Reason for Consultation: STEMI Attending Physician: Db Gramajo MD History of Present Illness Patient is a 57-year-old male with a significant past medical history of heart murmur, celiac disease, gout, dyslipidemia, hypertension, diabetes, CHF, MAREN, morbid obesity, GERD, and coronary artery disease. The patient was recently evaluated with complaints of chest discomfort on exertion. He had an abnormal stress test and underwent catheterization which demonstrated multivessel disease. The patient was awaiting evaluation at [facility] this , but developed an abrupt onset of chest pain which prompted emergency visit today. The patient was found to have ST elevations in route via ambulance. He was provided nitroglycerin, aspirin, and was heparinized in the catheterization suite. He underwent ballooning of the vessel, and eventually required balloon pump placement. The patient is actively awaiting transfer to [facility] for definitive management. Allergies Allergy/AdvReac Type Severity Reaction Status Date / Time gluten Allergy Severe Celiac Verified 12/19/22 07:37 Disease wheat Allergy Severe celiac Verified 12/19/22 07:37 disease Penicillins Allergy Mild nausea/vomi Verified 12/19/22 07:37 ting Home Medications Medication Instructions Recorded Confirmed Type calcium carbonate 600 mg calcium 600 mg PO QAM 11/05/18 12/19/22 History (1,500 mg) tablet (Calcium) cholecalciferol (vitamin D3) 50 3 cap PO HS 11/05/18 12/19/22 History mcg (2,000 unit) capsule (Vitamin D3) clindamycin phosphate 1 % topical 1 applic topical BID PRN Rash 11/05/18 12/19/22 History solution cyanocobalamin (vitamin B-12) 5,000 mcg sublingual HS 11/05/18 12/19/22 History 5,000 mcg sublingual tablet (Vitamin B-12) febuxostat 80 mg tablet (Uloric) 80 mg PO QAM 11/05/18 12/19/22 History multivitamin 1 tab PO QAM 11/05/18 12/19/22 History antiarthritic combination no.2 900 2,700 mg PO QAM 03/10/19 12/19/22 History mg tablet (glucosamine-chondroitin) omega-3 acid ethyl esters 1 gram 1 cap PO HS #90 caps 03/12/19 12/19/22 Rx capsule alclometasone 0.05 % topical cream 1 applic topical DAILY PRN Rash 06/12/20 12/19/22 Rx #45 grams ferrous sulfate 325 mg (65 mg 650 mg PO DAILY 01/22/21 12/19/22 History iron) tablet (Mona-Time) Auto Titrating CPAP #1 ea 10/25/21 12/19/22 Rx CPAP Supplies #1 ea 10/25/21 12/19/22 Rx ascorbic acid (vitamin C) 500 mg 500 mg PO 1XD 06/12/22 12/19/22 History capsule quercetin 500 mg capsule 500 mg PO 1XD 06/12/22 12/19/22 History zinc gluconate 50 mg tablet 50 mg PO DAILY 06/12/22 12/17/22 History furosemide 40 mg tablet (Lasix) 40 mg PO QAM #30 tabs 11/08/22 12/19/22 Rx albuterol sulfate 90 mcg/actuation 2 inh inhalation QID PRN shortness 11/11/22 12/19/22 Rx aerosol inhaler of breath or wheezing #8.5 grams colchicine 0.6 mg tablet (Colcrys) 0.6 mg PO BID PRN Abdominal Pain 11/13/22 12/19/22 History omeprazole 20 mg tablet,delayed 20 mg PO HS #90 tabs 11/20/22 12/19/22 Rx release tirzepatide 2.5 mg/0.5 mL 2.5 mg (0.5 mL) subcut .ONCE 11/20/22 12/17/22 Rx subcutaneous pen injector WEEKLY #2 mL (Jaime) aspirin 81 mg tablet,delayed 81 mg PO DAILY #90 tabs 12/11/22 12/19/22 Rx release atorvastatin 40 mg tablet 40 mg PO HS #30 tabs 12/19/22 Rx metoprolol succinate 25 mg 25 mg PO DAILY #30 tabs 12/19/22 Rx tablet,extended release 24 hr (Toprol XL) nitroglycerin 0.4 mg sublingual 0.4 mg sublingual Q5M PRN chest 12/19/22 Rx tablet pain #30 tabs isosorbide mononitrate 30 mg 30 mg PO DAILY #30 tabs 12/21/22 Rx tablet,extended release 24 hr Patient History Medical History Anemia iron infusion 11/2019 Asthma childhood asthma--no inhaler BPH (benign prostatic hyperplasia) Cardiac murmur Moderate aortic sclerosis with no stenosis on 2018 stress echo Celiac disease diagnosed 2008--following a gluten free diet since 2018 Chest tightness Diastolic CHF Dyspnea on exertion GERD (gastroesophageal reflux disease) Gout Incomplete bladder emptying Iron deficiency anemia Microcytic anemia Morbid obesity due to excess calories Morbid obesity due to excess calories MAREN (obstructive sleep apnea) Osteoarthritis Prediabetes Scoliosis Shortness of breath Sleep apnea cpap Surgical History History of biopsy benign in mouth History of colonoscopy with polypectomy History of esophagogastroduodenoscopy (EGD) History of wisdom tooth extraction Family History Father Family history of diabetes mellitus Mother Thyroid disease Grandfather No problems noted. 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 GENERAL - 57-year-old male appearing his stated age who is in no acute distress. Communicates well with provider and answers questions appropriately. MOUTH/OROPHARYNX - Without perioral cyanosis. NECK - Neck with FROM. LUNGS - Chest wall symmetric without accessory muscle use, intercostals retractions, or central cyanosis. Normal vesicular breath sounds CTA B/L. No wheezes, rales, or rhonchi appreciated. CARDIAC - RRR with S1/S2. Impressive ANI noted. ABDOMEN - Abdominal contour obese without pulsations or visible masses. BS normoactive all four quadrants. No tenderness, palpable masses, hepatosplenomegaly, or ascites noted. EXTREMITIES - No clubbing or peripheral cyanosis. No pretibial edema present. +2/5 radial and dorsalis pedis pulses palpated throughout. +5/5 strength noted in UE/LE bilaterally. NEUROLOGIC - Cranial nerves II through XII grossly intact. Sensory intact to light touch throughout. PSYCH - A&Ox3 and cooperates fully with examiner. Pt is very pleasant and interacts well with examiner. Results & Data Results & Data Vital Signs (Past 12 Hours) Vital Signs Temp Pulse Pulse Resp BP BP Pulse Ox 12/30/22 16:15 94 H 139/76 93 12/30/22 16:15 96 H 16 111/66 93 12/30/22 14:36 96 12/30/22 14:31 36.3 C L 93 H 20 170/100 H 96 12/30/22 14:30 93 H O2 Del Method 12/30/22 16:15 12/30/22 16:15 Room Air 12/30/22 14:36 12/30/22 14:31 Room Air 12/30/22 14:30 PG Care Time/CCT Total # of Minutes Spent Total Time Spent with Patient: Total time spent is greater than 50% in coordination of care (as documented) at patient's floor/unit and/or counseling patient: Coding Level of Care Code 83105 CRITICAL CARE 1ST 30-74M Diagnoses Acute ST elevation myocardial infarction (STEMI) I21.3 Involved coronary artery: unspecified coronary artery CAD (coronary artery disease) I25.10
[2022-12-30] MEDS ORDERED: Heparin IV Adult Wt-Based Standard *NO* Bolus Protocol IV ONE (17:18)
--- NOTE | 2022-12-30 17:18 | History & Physical Report ---
Date of Service December 30, 2022 Assessment & Plan (1) CAD (coronary artery disease): Plan: Patient was taken for emergent cardiac catheterization due to initial ECG in ED showing inferior ST elevations. With anticoagulation/antiplatelet therapy ST segments noted to improve while taking diagnostic images. Continued to have mild chest pain and accelerated idioventricular rhythm. RCA again noted to have heavily calcified 95+% mid segment disease initially with PATRICIA II-III flow distally. Attempt made at angioplasty of mid RCA with 2.0 balloon but unable to pass balloon more distally. After attempted angioplasty patient chest pain-free and had PATRICIA-3 flow. Hemo dynamically and electrically stable. IABP placed for coronary perfusion. Case discussed with [facility] cardiac surgery and critical care. Will be transferred by air later today for CABG evaluation. While awaiting transfer continue heparin, nitroglycerin infusions. Continue amiodarone and electrolyte supplementation. Admission and Anticipated Discharge Date Admission Date: December 30, 2022 History of Present Illness Primary Care Provider: Gallo Mcgraw MD Mr. Blevins 57-year-old man here with acute chest pain and ECG concerning for acute HI. Patient seen emergently in the ED after heart alert activated on arrival. Patient previous underwent cardiac catheterization 12/19/2022 in the setting of exertional dyspnea/chest pressure for the preceding 2 months and abnormal stress test showing abnormal septal motion with peak stress. 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 With diabetes referred for outpatient CABG to [facility]. Was to have appointment later this week. On antianginal therapy was having intermittent symptoms over the last few days. This afternoon developed acute chest symptoms more severe than prior and EMS contacted. Initial ECG on arrival showed new inferior ST elevations, not seen on initial ECG with EMS today. Patient hemodynamically and electrically stable in ED. Taken emergently to cardiac catheterization lab. Past medical history: PCP is Dr. Mcgraw. Followed by Dr. Moran for lung disease/MAREN. ASCVD risk factors include type 2 diabetes, last A1c 9.4, hypertension, obesity now on tirzepatide (has lost 20 pounds over the last month), dyslipidemia and family history of CAD (mom with stents in 50s). Other medical issues include celiac disease, iron deficiency anemia requiring intermittent IV iron, BPH, gout, MAREN on CPAP, GERD. Other recent cardiovascular studies- Lipids (02/2021): Total cholesterol 140, triglycerides 183, HDL 34, LDL 105. A1c 9.4 11/2022. ECG 11/2022: Sinus rhythm, first-degree AV block, ventricular rate 72, questionable inferior infarct Stress (exercise echo) (11/29/2022): 7:00 min, 8.5 METs, 83% MPHR abnormal septal motion with stress. 0.[address] depression in lateral leads. Occasional PVCs. No LVH, normal wall motion at rest, mild aortic stenosis, mild left atrial enlargement, DD 1 Stress (exercise echo) (10/2017): 5: 13, 7 METS, no ischemia at 78% MPHR. Upsloping ST changes. Resting EF 60%, moderate LVH, aortic valve sclerosis without stenosis Family history: Mother had multiple coronary stents earliest in her 50s, also had a pacemaker. Sister has atrial fibrillation. Maternal grandfather of an HI approximately age 65. 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 Now remarried. Lifelong non-smoker. Denies any alcohol. Allergies Allergy/AdvReac Type Severity Reaction Status Date / Time gluten Allergy Severe Celiac Verified 12/19/22 07:37 Disease wheat Allergy Severe celiac Verified 12/19/22 07:37 disease Penicillins Allergy Mild nausea/vomi Verified 12/19/22 07:37 ting Home Medications Medication Instructions Recorded Confirmed Type calcium carbonate 600 mg calcium 600 mg PO QAM 11/05/18 12/19/22 History (1,500 mg) tablet (Calcium) cholecalciferol (vitamin D3) 50 3 cap PO HS 11/05/18 12/19/22 History mcg (2,000 unit) capsule (Vitamin D3) clindamycin phosphate 1 % topical 1 applic topical BID PRN Rash 11/05/18 12/19/22 History solution cyanocobalamin (vitamin B-12) 5,000 mcg sublingual HS 11/05/18 12/19/22 History 5,000 mcg sublingual tablet (Vitamin B-12) febuxostat 80 mg tablet (Uloric) 80 mg PO QAM 11/05/18 12/19/22 History multivitamin 1 tab PO QAM 11/05/18 12/19/22 History antiarthritic combination no.2 900 2,700 mg PO QAM 03/10/19 12/19/22 History mg tablet (glucosamine-chondroitin) omega-3 acid ethyl esters 1 gram 1 cap PO HS #90 caps 03/12/19 12/19/22 Rx capsule alclometasone 0.05 % topical cream 1 applic topical DAILY PRN Rash 06/12/20 12/19/22 Rx #45 grams ferrous sulfate 325 mg (65 mg 650 mg PO DAILY 01/22/21 12/19/22 History iron) tablet (Mona-Time) Auto Titrating CPAP #1 ea 10/25/21 12/19/22 Rx CPAP Supplies #1 ea 10/25/21 12/19/22 Rx ascorbic acid (vitamin C) 500 mg 500 mg PO 1XD 06/12/22 12/19/22 History capsule quercetin 500 mg capsule 500 mg PO 1XD 06/12/22 12/19/22 History zinc gluconate 50 mg tablet 50 mg PO DAILY 06/12/22 12/17/22 History furosemide 40 mg tablet (Lasix) 40 mg PO QAM #30 tabs 11/08/22 12/19/22 Rx albuterol sulfate 90 mcg/actuation 2 inh inhalation QID PRN shortness 11/11/22 12/19/22 Rx aerosol inhaler of breath or wheezing #8.5 grams colchicine 0.6 mg tablet (Colcrys) 0.6 mg PO BID PRN Abdominal Pain 11/13/22 12/19/22 History omeprazole 20 mg tablet,delayed 20 mg PO HS #90 tabs 11/20/22 12/19/22 Rx release tirzepatide 2.5 mg/0.5 mL 2.5 mg (0.5 mL) subcut .ONCE 11/20/22 12/17/22 Rx subcutaneous pen injector WEEKLY #2 mL (Mounjaro) aspirin 81 mg tablet,delayed 81 mg PO DAILY #90 tabs 12/11/22 12/19/22 Rx release atorvastatin 40 mg tablet 40 mg PO HS #30 tabs 12/19/22 Rx metoprolol succinate 25 mg 25 mg PO DAILY #30 tabs 12/19/22 Rx tablet,extended release 24 hr (Toprol XL) nitroglycerin 0.4 mg sublingual 0.4 mg sublingual Q5M PRN chest 12/19/22 Rx tablet pain #30 tabs isosorbide mononitrate 30 mg 30 mg PO DAILY #30 tabs 12/21/22 Rx tablet,extended release 24 hr Past Med/Surg History Medical History Anemia iron infusion 11/2019 Asthma childhood asthma--no inhaler BPH (benign prostatic hyperplasia) Cardiac murmur Moderate aortic sclerosis with no stenosis on 2018 stress echo Celiac disease diagnosed 2008--following a gluten free diet since 2019 Chest tightness Diastolic CHF Dyspnea on exertion GERD (gastroesophageal reflux disease) Gout Incomplete bladder emptying Iron deficiency anemia Microcytic anemia Morbid obesity due to excess calories Morbid obesity due to excess calories MAREN (obstructive sleep apnea) Osteoarthritis Prediabetes Scoliosis Shortness of breath Sleep apnea cpap Surgical History History of biopsy benign in mouth History of colonoscopy with polypectomy History of esophagogastroduodenoscopy (EGD) History of wisdom tooth extraction Family History Father Family history of diabetes mellitus Mother Thyroid disease Grandfather No problems noted. 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 Beliefs That Will Affect Care: Congregational marital status: Current Living Situation: Spouse current occupational status: employed Feels Safe at Home: Yes Childhood Exposure to Second-Hand Smoke: No Dental Care, Regularly: Yes Physical Activity Frequency: Does not Exercise Seatbelt Use: always Sunscreen Use: No Assistive Devices: None Review of Systems Review of Systems: All systems reviewed & are unremarkable except as noted in HPI & below Physical Exam Physical Exam: General: Uncomfortable HEENT: Sclerae anicteric Lungs: Clear to auscultation bilaterally, no crackles or wheezes Cardiac: Regular rate and rhythm, 2 out of 6 systolic ejection murmur heard best the right upper sternal border Vascular: 2+ radial Abdomen: Soft, nontender Extremities: Well perfused, trivial bilateral edema Neuro: Nonfocal Psych: Alert orient x3, normal affect and mood Results & Data Results & Data Vital Signs (Past 12 Hours) Vital Signs Temp Pulse Pulse Resp BP BP Pulse Ox 12/30/22 16:15 94 H 139/76 93 12/30/22 16:15 96 H 16 111/66 93 12/30/22 14:36 96 12/30/22 14:31 97.3 F L 93 H 20 170/100 H 96 12/30/22 14:30 93 H O2 Del Method 12/30/22 16:15 12/30/22 16:15 Room Air 12/30/22 14:36 12/30/22 14:31 Room Air 12/30/22 14:30 Code Status & VTE Plan VTE Prophylaxis Plan VTE Prophylaxis will be ordered: Yes PG Care Time/CCT Total # of Minutes Spent Total Time Spent with Patient: Total time spent is greater than 50% in coordination of care (as documented) at patient's floor/unit and/or counseling patient: Coding Level of Care Code 10272 INT INP/OBS CARE 3/75MIN Diagnoses CAD (coronary artery disease) I25.10
[2022-12-30] MEDS ORDERED: 0.2 MICRON FILTER SET 1 EACH IV ONE (17:23)
[2022-12-30] MEDS ORDERED: AMIODARONE / D5W 360 MG/200 ML BAG IV ONE (17:23)
[2022-12-30] MEDS ORDERED: NITROGLYCERIN/D5W 100MCG/ML 250 ML IV SCH (17:30)
[2022-12-30] MEDS ORDERED: HEPARIN SODIUM/DEXTROSE 25,000 UNITS/500 ML BAG IV SCH (17:45)
[2022-12-30] MEDS ORDERED: PANTOprazole 40 MG TAB PO SCH (21:00)
[2022-12-30] MEDS ORDERED: ATORVASTATIN 40 MG TAB PO SCH (21:00)
[2022-12-31] MEDS ORDERED: ASPIRIN 81 MG ECTAB PO SCH (09:00)
[2022-12-31] MEDS ORDERED: METOPROLOL SUCC 25MG EXT REL TAB PO SCH (09:00)
--- NOTE | 2022-12-31 09:43 | Electrocardiogram Report ---
Test Reason : Blood Pressure : / mmHG Vent. Rate : 093 BPM Atrial Rate : 093 BPM P-R Int : 190 ms QRS Dur : 096 ms QT Int : 352 ms P-R-T Axes : 038 032 093 degrees QTc Int : 437 ms Sinus rhythm with occasional Premature ventricular complexes Possible Left atrial enlargement ST elevation consider inferior injury or acute infarct ACUTE SC / STEMI Consider right ventricular involvement in acute inferior infarct Abnormal ECG No previous ECGs available Confirmed by Gallo Garcia ([id number]) on 12/31/2022 9:43:30 AM Referred By: Confirmed By:Gallo Garcia
--- NOTE | 2023-01-01 23:45 | Discharge Summary ---
Date of Service January 01, 2023 Admission HPI Per Admitting Provider Mr. Blevins 57-year-old man here with acute chest pain and ECG concerning for acute AK. Patient seen emergently in the ED after heart alert activated on arrival. Patient previous underwent cardiac catheterization 12/19/2022 in the setting of exertional dyspnea/chest pressure for the preceding 2 months and abnormal stress test showing abnormal septal motion with peak stress. 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 With diabetes referred for outpatient CABG to [facility]. Was to have appointment later this week. On antianginal therapy was having intermittent symptoms over the last few days. This afternoon developed acute chest symptoms more severe than prior and EMS contacted. Initial ECG on arrival showed new inferior ST elevations, not seen on initial ECG with EMS today. Patient hemodynamically and electrically stable in ED. Taken emergently to cardiac catheterization lab. Past medical history: PCP is Dr. Ferrari Followed by Dr. Moran for lung disease/MAREN. ASCVD risk factors include type 2 diabetes, last A1c 9.4, hypertension, obesity now on tirzepatide (has lost 20 pounds over the last month), dyslipidemia and family history of CAD (mom with stents in 50s). Other medical issues include celiac disease, iron deficiency anemia requiring i ntermittent IV iron, BPH, gout, MAREN on CPAP, GERD. Other recent cardiovascular studies- Lipids (02/2021): Total cholesterol 140, triglycerides 183, HDL 34, LDL 105. A1c 9.4 11/2022. ECG 11/2022: Sinus rhythm, first-degree AV block, ventricular rate 72, questionable inferior infarct Stress (exercise echo) (11/29/2022): 7:00 min, 8.5 METs, 83% MPHR abnormal septal motion with stress. 0.[address] depression in lateral leads. Occasional PVCs. No LVH, normal wall motion at rest, mild aortic stenosis, mild left atrial enlargement, DD 1 Stress (exercise echo) (10/2017): 5: 13, 7 METS, no ischemia at 78% MPHR. Upsloping ST changes. Resting EF 60%, moderate LVH, aortic valve sclerosis without stenosis Family history: Mother had multiple coronary stents earliest in her 50s, also had a pacemaker. Sister has atrial fibrillation. Maternal grandfather of an AK approximately age 65. 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 Now remarried. Lifelong non-smoker. Denies any alcohol. Discharge Data Consultations 12/30/22 16:10 Consult Meat Department Manager Routine 12/30/22 16:42 Burn CD for patient Stat Procedures Performed Operation Date: 12/30/22 14:30 Actual Procedures p Cineradiography w/Routine Exam - Earl Gramajo MD s Cath, Coronaries ONLY (no LV) - Earl Gramajo MD s POBA SGL Vessel - MD chet Burgos Intra-Aortic Balloon Insertion - MD chet Burgos Ultrasound Vascular Access - Earl Gramajo MD Hospital Course (1) CAD (coronary artery disease): Patient was taken for emergent cardiac catheterization due to initial ECG in ED showing inferior ST elevations. With anticoagulation/antiplatelet therapy ST segments noted to improve while taking diagnostic images. Continued to have mild chest pain and accelerated idioventricular rhythm. RCA again noted to have heavily calcified 95+% mid segment disease initially with PATRICIA II-III flow distally. Attempt made at angioplasty of mid RCA with 2.0 balloon but unable to pass balloon more distally. After attempted angioplasty patient chest pain-free and had PATRICIA-3 flow. Hemodynamically and electrically stable. IABP placed for coronary perfusion. Case discussed with [facility] cardiac surgery and critical care. Transferred by air for CABG evaluation. Coding Level of Care Code 76781 INP/OBS DISCH >30 MIN Diagnoses CAD (coronary artery disease) I25.10
== END 2022-12-30 18:09 | disposition short-term general hospital (02) | DRG 271 ==
LOC: ED 14:23 → 1E 14:37
PROC: CLB.CCO (2022-12-30 14:30)